=== PATIENT | male | born 1975 | race African-American/Black ===

== ENCOUNTER 2023-03-03 08:04 | Outpatient (CLI) | payer BC, SELFPAY ==
[2023-03-03 08:32] LABS: Appearance Urine Clear (Clear); Bilirubin Urine Negative (Negative); Blood Urine Negative (Negative); Color Urine Yellow (Yellow); Glucose Urine UA Negative (Negative); Ketones Urine Negative (Negative); Leukocyte Esterase Ur Negative LEU/UL (NEGATIVE); Nitrate Urine Negative (Negative); Protein Urine Negative (Negative); Specific Grav Ur 1.021 (1.001-1.035); pH Urine 6.5 (5.0-9.0)
[2023-03-03 08:59] LABS: Add Urine Microscopic? NO
[2023-03-03 09:01] LABS: Basophils Percent Auto 0.4 % (0.2-1.2); Eosinophils Percent Auto 0.8 % (0-4.4); Hemoglobin 14.6 g/dL (14.0-18.0); Immature Granulocyte Absolute 0.01 K/mm3 (0.00-0.031); Immature Granulocyte Percent A 0.2 % (0-0.5); Lymphocytes Absolute Auto 2.64 K/mm3 (0.9-3.2); Lymphocytes Percent Auto 55.3 % (18.3-44.2); Mean Corpuscular HGB Conc 32.4 g/dl (32-36); Mean Corpuscular Hemoglobin 29.7 pg (26-34); Mean Corpuscular Volume 91.5 fl (80-100); Monocytes Absolute Auto 0.6 K/mm3 (0.1-0.6); Monocytes Percent Auto 13.2 % (2.6-8.5); Neutrophils Absolute Auto 1.4 K/mm3 (1.3-6.7); Neutrophils Percent Auto 30.1 % (45.5-73.1); Platelet Count Result 248 k/mm3 (150-375); Red Blood Count 4.92 M/mm3 (4.6-6.20); Red Cell Distribution Width 13.9 % (11.5-14.5); White Blood Count 4.8 K/mm3 (4.5-10.0)
[2023-03-03 09:05] LABS: Alanine Aminotransferase 33 U/L (6-50); Albumin Level 4.3 g/dL (3.5-5.1); Alkaline Phosphatase 57 U/L (38-126); Anion Gap 6 mmol/L (8-16); Aspartate Amino Transferase 30 U/L (17-59); Bilirubin,Total 0.7 mg/dL (0.2-1.3); Blood Urea Nitrogen 15 mg/dL (9-20); Carbon Dioxide 27 mmol/L (22-30); Chloride 107 mmol/L (98-107); Cholesterol 243 mg/dL (0-200); Estimated Glomerular Filt Rate > 60; Glucose 97 mg/dL (65-110); HDL Direct 38 mg/dL; Potassium 3.9 mmol/L (3.4-5.0); Sodium 140 mmol/L (137-145); Triglycerides 85 mg/dL (<150)
[2023-03-03 09:15] LABS: Hemoglobin A1C 5.7 % (<5.7)
[2023-03-03 09:17] LABS: LDL Cholesterol Direct 154 mg/dL
[2023-03-03 09:35] LABS: Thyroid Stimulating Hormone 0.603 uIU/mL (0.465-4.680)
== END 2023-03-03 08:05 | disposition home or self-care (01) ==
PROVIDERS: PCP Nurse Practitioner Family; Visit Provider Nurse Practitioner Family
DX: E78.5 Hyperlipidemia, unspecified (principal); I10 Essential (primary) hypertension; E55.9 Vitamin D deficiency, unspecified; G47.33 Obstructive sleep apnea (adult) (pediatric); Z12.5 Encounter for screening for malignant neoplasm of prostate; Z13.1 Encounter for screening for diabetes mellitus; Z68.32 Body mass index [BMI] 32.0-32.9, adult
CPT/HCPCS: 36415; 80053; 80061; 81003; 82306; 83036; 84153; 84443; 85025; G0103

== ENCOUNTER 2023-10-25 18:32 | Emergency (ER) | payer BC, SELFPAY ==
--- NOTE | ~2023-10-25 | XR_ITS ---
EXAMINATION: XR chest 2V 10/25/2023 18:56 INDICATION: Left-sided chest pain PROCEDURE: 2 view chest COMPARISON: No prior studies for comparison. FINDINGS: The lungs are clear. The cardiomediastinal silhouette is within normal limits. There are no pleural effusions. There is no pneumothorax suspected. IMPRESSION: 1: NO ACUTE CARDIOPULMONARY DISEASE. Reviewed, dictated and finalized at location A.
--- NOTE | ~2023-10-25 | CT_ITS ---
EXAMINATION: CT cervical spine wo con DATE: 10/25/2023 20:46 INDICATION: Neck pain. Radiculopathy. TECHNIQUE: Computed tomography (CT) of the cervical spine was performed without intravenous contrast. The dose-length product was 512 mGy-cm. Automated exposure control and iterative reconstruction technique were employed. COMPARISON: None FINDINGS: Lung apices are unremarkable. There is enlargement of the tonsils with effacement of the or opharynx and laryngopharynx, suspicious for tonsillitis. There is effacement of the parapharyngeal sp aces. No abscess identified. Small mucous retention cyst right maxillary sinus. Vertebral body height s are maintained. Craniovertebral junction is normal. There is mild disc narrowing at C3-4, C6-7 and C7-T1. Mild multilevel uncinate hypertrophy. There is cervical lymphadenopathy, likely reactive. IMPRESSION: 1. No acute abnormality of the cervical spine. 2: Enlargement of the tonsils with effacement of the parapharyngeal spaces. There is significant narr owing of the oropharynx and laryngopharynx. Findings suspicious for tonsillitis, although no abscess identified. Evaluation for abscess limited due to lack of contrast. 3: Mild cervical spondylosis. 4: Bilateral cervical lymphadenopathy, likely reactive. Reviewed, dictated and finalized at location A. IMPRESSION: 1. No acute abnormality of the cervical spine. 2: Enlargement of the tonsils with effacement of the parapharyngeal spaces. The re is significant narrowing of the oropharynx and laryngopharynx. Findings susp icious for tonsillitis, although no abscess identified. Evaluation for abscess limited due to lack of contrast. 3: Mild cervical spondylosis. 4: Bilateral cervical lymphadenopathy, likely reactive.
--- NOTE | 2023-10-25 18:33 | ECG_ITS ---
SEE SCANNED COPY FOR CONFIRMED REPORT MTDD
[2023-10-25 18:40] VITALS: BP 126/80; PULSE 82; RESP 18; TEMP 36.7; O2SAT 97
[2023-10-25 19:04] LABS: Basophils Percent Auto 0.7 % (0.2-1.2); Eosinophils Absolute Auto 0.1 K/mm3 (0-0.3); Hematocrit 42.5 % (42.0-52.0); Hemoglobin 13.9 g/dL (14.0-18.0); Immature Granulocyte Absolute 0.02 K/mm3 (0.00-0.031); Immature Granulocyte Percent A 0.3 % (0-0.5); Lymphocytes Absolute Auto 2.32 K/mm3 (0.9-3.2); Lymphocytes Percent Auto 38.8 % (18.3-44.2); Mean Corpuscular HGB Conc 32.7 g/dl (32-36); Mean Corpuscular Hemoglobin 29.9 pg (26-34); Mean Corpuscular Volume 91.4 fl (80-100); Mean Platelet Volume 10.5 fl (7.4-10.4); Monocytes Absolute Auto 0.7 K/mm3 (0.1-0.6); Monocytes Percent Auto 12.4 % (2.6-8.5); Neutrophils Absolute Auto 2.8 K/mm3 (1.3-6.7); Neutrophils Percent Auto 46.8 % (45.5-73.1); Platelet Count Result 217 k/mm3 (150-375); Red Blood Count 4.65 M/mm3 (4.6-6.20); Red Cell Distribution Width 14.3 % (11.5-14.5)
[2023-10-25 19:16] LABS: Prothrombin Time 13.6 Seconds (11.1-14.7)
[2023-10-25 19:17] LABS: Alanine Aminotransferase 36 U/L (6-50); Albumin Level 4.1 g/dL (3.5-5.1); Alkaline Phosphatase 83 U/L (38-126); Anion Gap 5 mmol/L (4-12); Aspartate Amino Transferase 28 U/L (17-59); Bilirubin,Total 0.5 mg/dL (0.2-1.3); Blood Urea Nitrogen 14 mg/dL (9-20); Calcium 9.5 mg/dL (8.4-10.2); Carbon Dioxide 23 mmol/L (22-30); Chloride 113 mmol/L (98-107); Estimated CRCL calculation 77 ml/min; Estimated Glomerular Filt Rate > 60; Glucose 101 mg/dL (65-110); Lipase 76 U/L (23-300); Partial Thromboplastin Time 27.1 Seconds (22.3-36.8); Sodium 141 mmol/L (137-145)
--- NOTE | 2023-10-25 19:27 | ED.CHESTPAIN ---
HPI - Chest Pain General Chief Complaint: Chest Pain Stated Complaint: chest pain Time Seen by Provider: 10/25/23 19:26 History of Present Illness HPI narrative: Patient is a 48-year-old male with history of hypertension, hyperlipidemia, chronic lower back pain here with left arm pain and tingling. Patient notes that symptoms began with some neck pain approximately 4 days ago which seemed to radiate into his shoulder. He then noted that his pain has been intermittent throughout his arm over the last 4 days. He has had some associated numbness and tingling in his arm and hand on the left side. He notes that positional changes of his neck do seem to worsen his pain in his arm. He does not remember any enticing event. States that he woke up 1 morning and the pain was present. He does believe that the pain goes into his axilla on the left side and is unsure of her radiates into which chest or not. No shortness of breath, no cough, no congestion. No abdominal pain. Related Data Home Medications Medication Instructions Recorded Confirmed fexofenadine [Mirian Allergy] PO 03/01/23 08/02/23 fluticasone propionate 50 1 spray intranasal BID 03/01/23 08/02/23 mcg/actuation nasal spray,suspension (Flonase Allergy Relief) Allergies Allergy/AdvReac Type Severity Reaction Status Date / Time No Known Allergies Allergy Unverified 08/02/23 08:06 Review of Systems Review of Systems: All systems reviewed & are unremarkable except as noted in HPI and below PMFSH Past Medical History Medical History (Updated 10/26/23 @ 00:01 by Jass Michel) Bloating BMI 32.0-32.9,adult BMI 33.0-33.9,adult Encounter to establish care HTN (hypertension) Hyperlipidemia DEBI on CPAP Seasonal allergies Twitching Vitamin D deficiency Surgical History Surgical History History of intestinal surgery Family History Family History Father Hypertension Mother Hypertension Sibling Thyroid cancer Hypertension Grandparent Heart disease Hypertension Social History Social History Smoking status: Never smoker Alcohol intake: never Substance use: never Substance use type: does not use Current Housing: Decline to Answer Concerned About Future Housing: Decline to Answer Difficulty Paying Gas/Electric Bills: Decline to Answer Difficulty Paying for Meds: Decline to Answer Currently Unemployed: Decline to Answer Education: Decline to Answer Difficulty w/ Childcare or Family Care: Decline to Answer Exam Narrative: GENERAL: Well-appearing, well-nourished, and in no acute distress. HEAD: Normocephalic, atraumatic. EYES: PERRLA and EOMI. ENT: Nares clear. Mucous membranes moist. NECK: Supple. No reproducible in the midline neck tenderness. No tenderness over trapezius. CHEST: Clear to auscultation. No respiratory distress. No chest wall tenderness. HEART: Regular rate and rhythm. Normal peripheral pulses. ABDOMEN: Soft, nontender, nondistended. EXTREMITIES: Normal range of motion. No edema. No reproducible tenderness on range of the left shoulder. No reproducible tenderness left arm. Strong radial pulse, arm warm to touch with normal capillary refill throughout the left hand. SKIN: Warm, dry, no rash. NEURO: No focal deficits. Alert and oriented x3. No sensory deficits appreciated throughout the left arm. Normal strength. PSYCH: Normal mood and affect. Course Course Emergency Course: Chart review performed. Patient here with left arm pain, numbness, pain to left axilla and chest x 4 days. Triage vitals normal. PCP note from 03/01/23 reviewed. He has history of HTN, HLD, DEBI, obesity. Patient seen evaluated, nontoxic appearing. I believe his presentation is most likely consistent with a cervical radiculopathy and nerve pain ove
[2023-10-25 19:28] VITALS: BP 118/89; PULSE 68; PULSE 72; RESP 16; TEMP 36.6; O2SAT 96; O2SAT 97
[2023-10-25 19:29] VITALS: O2SAT 97
[2023-10-25 19:29] LABS: Troponin I < 0.012 ng/mL (0.000-0.034)
[2023-10-25 20:04] VITALS: BP 137/86; PULSE 67; RESP 16; O2SAT 97
--- NOTE | 2023-10-25 21:17 | ECG_ITS ---
SEE SCANNED COPY FOR CONFIRMED REPORT MTDD
[2023-10-25] MEDS: CYCLOBENZAPRINE HCL 10 MG TABLET PO (22:13)
[2023-10-25 22:15] LABS: Troponin I < 0.012 ng/mL (0.000-0.034)
[2023-10-25 22:16] VITALS: BP 146/94; PULSE 58; RESP 19; O2SAT 96
[2023-10-25 22:17] LABS: Monoscreen Negative (Negative); Negative Monotest Control Negative (Negative); Positive Monotest Control Positive (Positive)
[2023-10-25 22:41] LABS: Strep Group A RT-PCR NOT DETECTED (Negative)
== END 2023-10-25 23:32 | disposition home or self-care (01) ==
PROVIDERS: Emergency Medicine; Emergency Provider Student in an Organized Health Care Education/Training Program; PCP Nurse Practitioner Family
DX: M54.12 Radiculopathy, cervical region (principal); R20.2 Paresthesia of skin; J35.1 Hypertrophy of tonsils; I10 Essential (primary) hypertension; E78.5 Hyperlipidemia, unspecified; G47.33 Obstructive sleep apnea (adult) (pediatric); E55.9 Vitamin D deficiency, unspecified; R94.31 Abnormal electrocardiogram [ECG] [EKG]; R00.1 Bradycardia, unspecified
CPT/HCPCS: 36415; 71046; 72125; 80053; 83690; 84443; 84484; 85025; 85610; 85730; 86308; 87651; 93005; 99284; A9270

== ENCOUNTER → 2024-03-27 13:31 | Outpatient (CLI) | payer BC, SELFPAY ==
--- NOTE | ~2024-03-27 | XR_ITS ---
EXAMINATION: XR lumbar spine min 4V DATE: 03/27/2024 13:50 INDICATION: Low back pain, unspecified. TECHNIQUE: 5 views of lumbar spine were obtained. COMPARISON: None. FINDINGS: There is 4 degrees dextrocurvature of lumbar spine. Vertebral body heights are normal. Ther e is mildly decreased disc height at L4-L5 and severely decreased disc height at L5-S1. There is mult ilevel facet joint osteoarthritis, severe in lower lumbar spine. IMPRESSION: 1. Severe lower lumbar spondylosis. Reviewed, dictated and finalized at location B.
--- NOTE | ~2024-03-27 | XR_ITS ---
AP and lateral views of the right hip Clinical history: Pain Findings: No acute fracture or dislocation is seen. Osseous alignment is anatomic. Right hip joint is intact. Soft tissues are unremarkable. Impression: No significant abnormality is seen. Reviewed, dictated and finalized at location M. Impression: No significant abnormality is seen.
--- NOTE | ~2024-03-27 | XR_ITS ---
AP and lateral views of the left hip Clinical history: Pain Findings: No acute fracture or dislocation is seen. Osseous alignment is anatomic. Left hip joint is intact. Soft tissues are unremarkable. Impression: No significant abnormality is seen. Reviewed, dictated and finalized at location M. Impression: No significant abnormality is seen.
== END ==
PROVIDERS: PCP Nurse Practitioner Family; Visit Provider Nurse Practitioner Family
DX: M54.50 Low back pain, unspecified (principal); M79.604 Pain in right leg; M79.605 Pain in left leg; M25.552 Pain in left hip; M25.551 Pain in right hip; M47.896 Other spondylosis, lumbar region
CPT/HCPCS: 72110; 73502

== ENCOUNTER 2024-05-08 20:54 | Emergency (ER) | payer BC, SELFPAY ==
[2024-05-08 21:09] VITALS: BP 148/93; PULSE 76; RESP 13; TEMP 36.6; O2SAT 100
--- NOTE | 2024-05-08 21:22 | PC.NURSE ---
Patient came up to triage desk and stated he wants to go home. Instructed patient to come back if symptoms worsen or to follow up with PCP in the morning.
== END 2024-05-08 21:22 | disposition left against medical advice (07) ==
PROVIDERS: PCP Nurse Practitioner Family
DX: R10.9 Unspecified abdominal pain (principal)
CPT/HCPCS: 99199

== ENCOUNTER 2024-05-09 09:39 | Emergency (ER) | payer BC, SELFPAY ==
[2024-05-09 09:55] VITALS: BP 162/92; PULSE 77; RESP 20; TEMP 36.4; O2SAT 98
--- NOTE | 2024-05-09 17:52 | ED.NAVMDI ---
HPI - Nausea/Vomiting/Diarrhea General Chief complaint: Abdominal Pain Stated complaint: abd pain, n/v Time Seen by Provider: 05/09/24 09:59 History of Present Illness HPI Narrative: patient presents here with nausea vomiting and right upper quadrant pain since yesterday, as of today his pain has essentially completely resolved, he just still has some mild nausea. Related Data Home Medications ?Medication ?Instructions ?Recorded ?Confirmed ?Last Taken ?Type fexofenadine [Mirian Allergy] PO 03/01/23 03/27/24 Unknown History fluticasone propionate 50 1 spray intranasal BID 03/01/23 03/27/24 Unknown History mcg/actuation nasal spray,suspension (Flonase Allergy Relief) Allergies Allergy/AdvReac Type Severity Reaction Status Date / Time No Known Allergies Allergy Verified 05/09/24 09:59 Review of Systems Review of Systems: All systems reviewed & are unremarkable except as noted in HPI and below PMFSH Past Medical History Medical History (Updated 05/09/24 @ 10:00 by Gloria Chamorro MD) Low back pain radiating to both legs Right hip pain Left hip pain Panic attacks Internal hemorrhoids BMI 37.0-37.9, adult Bilateral otitis media Generalized abdominal pain Twitching BMI 33.0-33.9,adult Vitamin D deficiency BMI 32.0-32.9,adult Hyperlipidemia Seasonal allergies DEBI on CPAP Bloating Encounter to establish care HTN (hypertension) Surgical History Surgical History History of intestinal surgery Family History Family History Father Hypertension Mother Hypertension Sibling Thyroid cancer Hypertension Grandparent Heart disease Hypertension Social History Social History Smoking status: Never smoker Alcohol intake: never Substance use: never Substance use type: does not use Current Housing: Decline to Answer Concerned About Future Housing: Decline to Answer Difficulty Paying Gas/Electric Bills: Decline to Answer Difficulty Paying for Meds: Decline to Answer Currently Unemployed: Decline to Answer Education: Decline to Answer Difficulty w/ Childcare or Family Care: Decline to Answer Exam Narrative: EXAMINATION OF ORGAN SYSTEMS/BODY AREAS: Constitutional: Vital signs per nursing GENERAL:[No acute distress, non-toxic appearing.] HEAD: Normal with no signs of head trauma. EYES: EOMI, conjunctiva normal ENT: Hearing grossly intact LUNGS: Nonlabored breathing. HEART: [Regular rate and rhythm] ABD: [Soft], [nontender to palpation] EXT: Normal range of motion SKIN: [No rashes or lesions.] NEURO: [Alert and oriented x 3. No gross focal sensory or strength deficits.] PSYCH: Normal affect Course Vital Signs Vital signs: Vital Signs Temperature 97.6 F 05/09/24 09:55 Pulse Rate 77 05/09/24 09:55 Respiratory Rate 20 05/09/24 09:55 Blood Pressure 162/92 H 05/09/24 09:55 Pulse Oximetry 98 05/09/24 09:55 Oxygen Delivery Room Air 05/09/24 09:55 Temperature 97.6 F 05/09/24 09:55 Pulse Rate 77 05/09/24 09:55 Respiratory Rate 20 05/09/24 09:55 Blood Pressure 162/92 H 05/09/24 09:55 Pulse Oximetry 98 05/09/24 09:55 Oxygen Delivery Room Air 05/09/24 09:55 MDM - Nausea/Vomiting/Diarrhea MDM Narrative Medical decision making narrative: Very [age] year old male presenting with nausea, vomiting, abdominal pain, which has now resolved. He does have some mild nausea, would prefer not to stay here for further workup or treatment which I feel is completely appropriate given his symptoms of essentially resolved. Would just like to have nausea medication, this is ordered, he is given follow-up to GI if his symptoms are improved, and return precautions provided. does not want to stay for medications either. He is extremely well appearing, abdomen is soft nontender, I do feel stable for discharge with return precautions Discharge Plan Discharge Clinical Impression: Nausea Patient Disposition: Home, Self-Care Condition: Stable Instructions: Abdominal Pain (ED) Additional Instructions: Please follow-up with gate operator, take medications as prescribed, try to avoid any fatty, greasy, fried, spicy foods, alcohol, or other medications that may trigger symptoms. Come back to the ER if your symptoms return or worsen specially if you have any right upper quadrant pain, fevers or chills, or vomiting. Patient Language: Sinhala Prescriptions: New famotidine 20 mg tablet 20 mg PO DAILY Qty: 30 0RF dicyclomine 20 mg tablet 20 mg PO TID PRN (Reason: abdominal pain) Qty: 30 0RF alum-mag hydroxide-simeth [Maalox Advanced] 200-200-20 mg/5 mL suspension 10 ml PO QID PRN (Reason: dyspepsia) Qty: 300 0RF Rx Instructions: administer between meals and at bedtime ondansetron 4 mg tablet,disintegrating 4 mg PO Q8H PRN (Reason: nausea and vomiting) Qty: 10 0RF No Action omeprazole 20 mg capsule,delayed release(DR/EC) 20 mg PO DAILY Qty: 90 3RF fexofenadine [Mirian Allergy] PO fluticasone propionate [Flonase Allergy Relief] 50 mcg/actuation spray,suspension 1 spray intranasal BID Rx Instructions: administer into each nostril cyclobenzaprine 10 mg tablet 10 mg PO BID PRN (Reason: muscle spasm) Qty: 60 2RF hydrocortisone acetate [Anusol-HC] 25 mg suppository 25 mg RECTAL QHS PRN (Reason: hemorrhoids) Qty: 24 2RF naproxen 500 mg tablet 500 mg PO BID PRN (Reason: pain) Qty: 30 0RF amlodipine 10 mg tablet 10 mg PO DAILY Qty: 90 3RF atorvastatin 20 mg tablet 20 mg PO DAILY Qty: 30 11RF lisinopril 20 mg tablet 20 mg PO DAILY Qty: 90 3RF Follow-up/Referrals: Margarita Lind NP [Primary Care Provider] - Reji Naqvi MD [Physician] - 3 Days
== END 2024-05-09 10:13 | disposition home or self-care (01) ==
LOC: ANHED 10:03
PROVIDERS: Emergency Provider Emergency Medicine; PCP Nurse Practitioner Family
DX: R11.0 Nausea (principal); E78.5 Hyperlipidemia, unspecified; E55.9 Vitamin D deficiency, unspecified; G47.33 Obstructive sleep apnea (adult) (pediatric); I10 Essential (primary) hypertension
CPT/HCPCS: 99283

== ENCOUNTER 2024-07-11 00:44 | Day surgery (SDC) | payer BC, SELFPAY ==
[2024-06-26 11:26] VITALS: BMI 37.5
--- NOTE | 2024-07-11 09:11 | P.PNAN_ITS ---
Anes - Initial Pre Proc Eval Procedure: Operation Date: 07/11/24 14:00 Proposed Procedures p Esophagogastroduodenoscopy - Reji Naqvi MD Date/Time: 07/11/24 09:11 Surgeon: Reji Naqvi MD Pre Op Diagnosis: Right upper quad pain,Abdominal distension Patient Data Age: 48 Gender: M Height: 1.7 m Weight: 108.9 kg Allergies Allergy/AdvReac Type Severity Reaction Status Date / Time No Known Allergies Allergy Verified 07/11/24 12:31 Home Medications ?Medication ?Instructions ?Recorded ?Confirmed ?Type omeprazole 20 mg capsule,delayed 20 mg PO DAILY #90 caps 11/24/22 06/26/24 Rx release fluticasone propionate 50 1 spray intranasal BID 03/01/23 06/26/24 History mcg/actuation nasal spray,suspension (Flonase Allergy Relief) naproxen 500 mg tablet 500 mg PO BID PRN pain #30 tabs 10/25/23 06/26/24 Rx cyclobenzaprine 10 mg tablet 10 mg PO BID PRN muscle spasm #60 02/03/24 06/26/24 Rx tabs hydrocortisone acetate 25 mg 25 mg RECTAL QHS PRN hemorrhoids 02/03/24 06/26/24 Rx rectal suppository (Anusol-HC) #24 ea amlodipine 10 mg tablet 10 mg PO DAILY #90 tabs 02/09/24 06/26/24 Rx atorvastatin 20 mg tablet 20 mg PO DAILY #30 tabs 03/15/24 06/26/24 Rx lisinopril 20 mg tablet 20 mg PO DAILY #90 tabs 05/05/24 06/26/24 Rx aluminum-mag hydroxide-simethicone 10 ml PO QID PRN dyspepsia #300 mL 05/09/24 06/26/24 Rx 200 mg-200 mg-20 mg/5 mL oral susp (Maalox Advanced) dicyclomine 20 mg tablet 20 mg PO TID PRN abdominal pain 05/09/24 06/26/24 Rx #30 tabs famotidine 20 mg tablet 20 mg PO DAILY #30 tabs 05/09/24 06/26/24 Rx ondansetron 4 mg disintegrating 4 mg PO Q8H PRN nausea and 05/09/24 06/26/24 Rx tablet vomiting #10 tabs Patient hx anesthesia problems: none Family hx anesthesia problems: none Results Review: All pre-operative results and documents have been reviewed as part of the pre- operative evaluation. COUNT INCLUDES [facility] Past Medical History Medical History Rectal pain Constipation Hemorrhoids Nausea and vomiting RUQ pain Low back pain radiating to both legs Right hip pain Left hip pain Panic attacks Internal hemorrhoids BMI 37.0-37.9, adult Bilateral otitis media Generalized abdominal pain Twitching BMI 33.0-33.9,adult Vitamin D deficiency BMI 32.0-32.9,adult Hyperlipidemia Seasonal allergies DEBI on CPAP Bloating Encounter to establish care HTN (hypertension) Surgical History Surgical History History of intestinal surgery Family History Family History Father Hypertension Mother Hypertension Sibling Thyroid cancer Hypertension Grandparent Heart disease Hypertension Social History Social History Smoking status: Never smoker Alcohol intake: never Substance use: never Substance use type: does not use Current Housing: Decline to Answer Concerned About Future Housing: Decline to Answer Difficulty Paying Gas/Electric Bills: Decline to Answer Difficulty Paying for Meds: Decline to Answer Currently Unemployed: Decline to Answer Education: Decline to Answer Difficulty w/ Childcare or Family Care: Decline to Answer Living arrangements: with family Spiritual care concerns: No Anes - Eval Final PreProcedure Day of Procedure 07/11/24 09:11 Patient weight: morbidly obese Heart: regular rate and rhythm Lungs: clear to auscultation Airway: Mallampati scale class III Neurological: alert and oriented Last oral intake: >/= 8 hours ASA classification: III Emergent: yes Anesthetic plan: proceed Anesthesia type and monitoring: general GIVS and standard monitoring Results Review: All pre-operative results and documents have been reviewed as part of the pre- operative evaluation. Informed Consent: The patient's anesthetic plan and its attendant risks and benefits were discussed with the patient/family/POA. Questions were solicited and answers provided to the satisfaction of the patient/family/POA.
[2024-07-11 12:34] VITALS: BP 131/84; PULSE 62; RESP 18; TEMP 36.1; O2SAT 100
[2024-07-11] MEDS: LACTATED RINGERS 1,000 ML 150 ML IV CONT (12:47)
--- NOTE | 2024-07-11 12:52 | PM.HPGS ---
History of Present Illness History of Present Illness Consent: Risks, benefits, and alternatives have been discussed and questions answered. Patient agrees to proceed with procedure. Chief complaint: Right upper quad pain,Abdominal distension Narrative: Wesley Lind is a 48 year old male here for first egd, intermittent upper abdominal pain and bloating, better when used ppi Review of Systems Review of Systems: All systems reviewed & are unremarkable except as noted in HPI and below PMFSH Past Medical History Medical History (Updated 05/16/24 @ 10:43 by RICARDO Ramirez) Rectal pain Constipation Hemorrhoids Nausea and vomiting RUQ pain Low back pain radiating to both legs Right hip pain Left hip pain Panic attacks Internal hemorrhoids BMI 37.0-37.9, adult Bilateral otitis media Generalized abdominal pain Twitching BMI 33.0-33.9,adult Vitamin D deficiency BMI 32.0-32.9,adult Hyperlipidemia Seasonal allergies DEBI on CPAP Bloating Encounter to establish care HTN (hypertension) Surgical History Surgical History History of intestinal surgery Family History Family History Father Hypertension Mother Hypertension Sibling Thyroid cancer Hypertension Grandparent Heart disease Hypertension Social History Social History Smoking status: Never smoker Alcohol intake: never Substance use: never Substance use type: does not use Current Housing: Decline to Answer Concerned About Future Housing: Decline to Answer Difficulty Paying Gas/Electric Bills: Decline to Answer Difficulty Paying for Meds: Decline to Answer Currently Unemployed: Decline to Answer Education: Decline to Answer Difficulty w/ Childcare or Family Care: Decline to Answer Living arrangements: with family Spiritual care concerns: No Meds Home Medications and Allergies Home Medications ?Medication ?Instructions ?Recorded ?Confirmed ?Type omeprazole 20 mg capsule,delayed 20 mg PO DAILY #90 caps 11/24/22 06/26/24 Rx release fluticasone propionate 50 1 spray intranasal BID 03/01/23 06/26/24 History mcg/actuation nasal spray,suspension (Flonase Allergy Relief) naproxen 500 mg tablet 500 mg PO BID PRN pain #30 tabs 10/25/23 06/26/24 Rx cyclobenzaprine 10 mg tablet 10 mg PO BID PRN muscle spasm #60 02/03/24 06/26/24 Rx tabs hydrocortisone acetate 25 mg 25 mg RECTAL QHS PRN hemorrhoids 02/03/24 06/26/24 Rx rectal suppository (Anusol-HC) #24 ea amlodipine 10 mg tablet 10 mg PO DAILY #90 tabs 02/09/24 06/26/24 Rx atorvastatin 20 mg tablet 20 mg PO DAILY #30 tabs 03/15/24 06/26/24 Rx lisinopril 20 mg tablet 20 mg PO DAILY #90 tabs 05/05/24 06/26/24 Rx aluminum-mag hydroxide-simethicone 10 ml PO QID PRN dyspepsia #300 mL 05/09/24 06/26/24 Rx 200 mg-200 mg-20 mg/5 mL oral susp (Maalox Advanced) dicyclomine 20 mg tablet 20 mg PO TID PRN abdominal pain 05/09/24 06/26/24 Rx #30 tabs famotidine 20 mg tablet 20 mg PO DAILY #30 tabs 05/09/24 06/26/24 Rx ondansetron 4 mg disintegrating 4 mg PO Q8H PRN nausea and 05/09/24 06/26/24 Rx tablet vomiting #10 tabs Allergies Allergy/AdvReac Type Severity Reaction Status Date / Time No Known Allergies Allergy Verified 07/11/24 12:31 Vital Signs Vital Signs - 24 hr 07/11/24 12:34 Temperature 97 F L Pulse Rate 62 Respiratory Rate 18 Blood Pressure 131/84 Pulse Oximetry 100 Oxygen Delivery Room Air Exam Const: General: comfortable and no acute distress HENMT: Face/Nose/Sinus: Normal nares present Eyes: General: appearance normal, both eyes and all related structures Neck: Neck: no JVD Resp: Auscultation: clear to auscultation bilaterally Cardio: Rate: regular rate Rhythm: regular rhythm GI: Inspection: non-distended GI Palp: Yes Soft to palpation Skin: General skin exam: normal color Neuro: Speech: normal speech Extrem: General: normal to inspection Psych: Mental Status: mental status grossly normal Assessment and Plan Assessment and plan (1) Bloating: Code(s): R14.0 - Abdominal distension (gaseous) Status: Acute Assessment and Plan: egd with bx (2) Generalized abdominal pain: Code(s): R10.84 - Generalized abdominal pain Status: Acute
[2024-07-11 13:09] VITALS: BP 116/73; PULSE 83; RESP 24; O2SAT 100
[2024-07-11 13:19] VITALS: BP 107/67; PULSE 72; RESP 23; O2SAT 100
[2024-07-11 13:29] VITALS: BP 126/81; PULSE 69; RESP 18; O2SAT 100
== END 2024-07-11 13:43 | disposition home or self-care (01) ==
PROVIDERS: PCP Nurse Practitioner Family; Referring Provider Nurse Practitioner Family; Visit Provider Internal Medicine Gastroenterology
PROC: 0DJ08ZZ Inspection of Upper Intestinal Tract, Via Natural or Artificial Opening Endoscopic (ICD-10-PCS; CPT 43239; principal; 2024-07-11 14:00)
DX: R10.11 Right upper quadrant pain (principal); R14.0 Abdominal distension (gaseous); E78.5 Hyperlipidemia, unspecified; I10 Essential (primary) hypertension; E55.9 Vitamin D deficiency, unspecified; F41.0 Panic disorder [episodic paroxysmal anxiety]; G47.33 Obstructive sleep apnea (adult) (pediatric); E66.01 Morbid (severe) obesity due to excess calories; Z68.38 Body mass index [BMI] 38.0-38.9, adult; Z79.1 Long term (current) use of non-steroidal anti-inflammatories (NSAID); Z99.89 Dependence on other enabling machines and devices; Z98.890 Other specified postprocedural states; Z80.8 Family history of malignant neoplasm of other organs or systems; Z82.49 Family history of ischemic heart disease and other diseases of the circulatory system
CPT/HCPCS: 43239; 88305; J7120

== ENCOUNTER 2024-07-19 12:55 | Outpatient (CLI) | payer BC, SELFPAY ==
--- NOTE | ~2024-07-19 | XR_ITS ---
Clinical Indication: Cough PA and lateral views of the chest: Comparison: 10/25/2023 Findings: The lungs are clear, without evidence of focal consolidation or pleural effusion. Cardiome diastinal silhouette is within normal limits. Bones and soft tissues are unremarkable. Impression: Normal chest. Reviewed, dictated and finalized at [facility]. SHING MACHINE OPERATOR Impression: Normal chest.
== END 2024-07-19 12:56 | disposition home or self-care (01) ==
LOC: ANHLAB 12:56
PROVIDERS: PCP Nurse Practitioner Family; Visit Provider Nurse Practitioner Family
DX: R05.9 Cough, unspecified (principal)
CPT/HCPCS: 71046

== ENCOUNTER 2024-08-15 07:55 | Outpatient (CLI) | payer BC, SELFPAY ==
--- NOTE | ~2024-08-15 | NM_ITS ---
History: Abdominal distention. Nuclear Medicine Gastric Emptying Assessment: The patient was orally administered 2 pieces white bread toast, 30 gm. jam or jelly and 4 oz. water t o be consumed within 10 minutes. 1.0 mCi. Tc-99m was mixed into the food. Patient was placed supine and using a dual head gamma camera 2 minute planar anterior and posterior i mages were acquired at 0.5 , 1 ,2 , 3, and 4 hrs. or until = or > than 90% gastric emptying was achie miguelangel. Regions of interest were drawn about the stomach and using the geometric mean method and decay c orrection, percent gastric retention was calculated. PERCENT GASTRIC RETENTION : 1 hr. 63% 2 hr. 30% 4 hr. 4% Impression: Normal gastric emptying. Normal Limits for Gastric Retention Time point Lower limit (a lower value Upper limit (a suggests abnormally rapid greater value gastric emptying) suggests abnormally delayed gastric emptying) 0.5 hr. 70% 1 hr. 30% 90% 2 hr. 60% 3 hr. 30% 4 hr. 10% Data are from Am J Gastroenterology. 2007;102:-11. Reviewed, dictated and finalized at [facility]. Impression: Normal gastric emptying. Normal Limits for Gastric Retention Time point Lower limit (a lower value Upper limit (a suggests abnormally rapid greater value gastric emptying) suggests abnorm ally de layed gastric e mptying) 0.5 hr. 70% 1 hr. 30% 90% 2 hr. 60% 3 hr. 30% 4 hr. 10% Data are from Am J Gastroenterology. 2007;102:-11.
== END 2024-08-15 07:56 | disposition home or self-care (01) ==
PROVIDERS: PCP Nurse Practitioner Family; Visit Provider Internal Medicine Gastroenterology
DX: R14.0 Abdominal distension (gaseous) (principal); R11.2 Nausea with vomiting, unspecified
CPT/HCPCS: 78264; A9541

== ENCOUNTER 2025-03-30 10:34 | Outpatient (CLI) | payer BC, SELFPAY ==
[2025-03-30 11:10] LABS: Hematocrit 45.4 % (42.0-52.0); Hemoglobin 15.2 g/dL (14.0-18.0); Immature Granulocyte Percent A 0.4 % (0-0.5); Lymphocytes Absolute Auto 2.25 K/mm3 (0.9-3.2); Mean Corpuscular HGB Conc 33.5 g/dl (32-36); Mean Corpuscular Hemoglobin 29.8 pg (26-34); Mean Corpuscular Volume 89.0 fl (80-100); Nucleated Red Blood Cells Absolute Auto 0.000 K/mm3 (0.0-0.012); Nucleated Red Blood Cells Perc 0.0 % (0.0-0.2); Platelet Count Result 261 k/mm3 (150-375); Red Blood Count 5.10 M/mm3 (4.6-6.20); White Blood Count 5.3 K/mm3 (4.5-10.0)
[2025-03-30 11:10] LABS: Add Urine Microscopic? NO; Appearance Urine Clear (Clear); Glucose Urine UA Negative (Negative); Leukocyte Esterase Ur Negative LEU/UL (Negative); Nitrate Urine Negative (Negative); Specific Grav Ur 1.017 (1.001-1.035)
[2025-03-30 11:25] LABS: Alanine Aminotransferase 58 U/L (6-50); Albumin Level 4.2 g/dL (3.5-5.1); Alkaline Phosphatase 74 U/L (38-126); Anion Gap 5 mmol/L (4-12); Aspartate Amino Transferase 38 U/L (17-59); Bilirubin,Total 0.5 mg/dL (0.2-1.3); Blood Urea Nitrogen 12 mg/dL (9-20); Calcium 9.2 mg/dL (8.4-10.2); Carbon Dioxide 25 mmol/L (22-30); Chloride 107 mmol/L (98-107); Cholesterol 262 mg/dL (0-200); Estimated Glomerular Filt Rate > 60; Glucose 122 mg/dL (65-110); HDL Direct 40 mg/dL; Potassium 4.0 mmol/L (3.4-5.0); Sodium 137 mmol/L (137-145); Total Protein 7.2 g/dL (6.3-8.2); Triglycerides 178 mg/dL (<150)
[2025-03-30 11:30] LABS: Hemoglobin A1C 5.9 % (<5.7)
[2025-03-30 11:54] LABS: Thyroid Stimulating Hormone Reflex 0.669 uIU/mL (0.465-4.68)
[2025-03-30 12:03] LABS: Prostate Specific Antigen 1.8 ng/mL (< OR = 4.0)
== END 2025-03-30 10:35 | disposition home or self-care (01) ==
LOC: ANHLAB 10:34
PROVIDERS: PCP Nurse Practitioner Family; Visit Provider Nurse Practitioner Family
DX: Z12.5 Encounter for screening for malignant neoplasm of prostate (principal); Z13.1 Encounter for screening for diabetes mellitus; E78.5 Hyperlipidemia, unspecified; G47.33 Obstructive sleep apnea (adult) (pediatric); I10 Essential (primary) hypertension
CPT/HCPCS: 36415; 80053; 80061; 81003; 83036; 84153; 84443; 85025; G0103